=== PATIENT | male | born 1980 | race Caucasian/White ===

== ENCOUNTER 2019-07-01 16:24 | Emergency (ER) | payer OTHER ==
[~2019-07-01] VITALS: Ht 172.7 cm; Wt 83.9 kg
[2019-07-01 17:21] LABS: INFLUENZA A ANTIGEN Negative (Negative); INFLUENZA B ANTIGEN Negative (Negative)
[2019-07-01 17:47] VITALS: BP 138/90
== END 2019-07-01 17:48 | disposition home or self-care (01) ==
LOC: M.ERS 16:24
PROVIDERS: Physician Assistant
DX: R51 Headache (principal); Z88.0 Allergy status to penicillin

== ENCOUNTER 2021-05-15 08:17 | Emergency (ER) | payer OTHER ==
[~2021-05-15] VITALS: Ht 172.7 cm; Wt 83.9 kg
[2021-05-15] MEDS ORDERED: BACLOFEN 10MG T10 MG PO (08:35)
[2021-05-15] MEDS ORDERED: CLEOCIN HCL150 M1 PO (08:36)
[2021-05-15 09:11] LABS: ABSOLUTE BASOPHILS 0.1 thou/uL (0.0-0.2); ABSOLUTE EOSINOPHILS 0.1 thou/uL (0.0-0.7); ABSOLUTE LYMPHOCYTES 1.9 thou/uL (0.8-5.3); ABSOLUTE MONOCYTES 0.7 thou/uL (0.0-1.2); ABSOLUTE NEUTROPHILS 7.5 thou/uL (1.6-8.1); BASOPHILS 0.6 %; EOSINOPHILS 0.9 %; HEMATOCRIT 46.2 % (42.0-52.0); HEMOGLOBIN 16.3 gm/dL (14.0-18.0); LYMPHOCYTES 18.6 %; MCH 32.1 pg (26.0-34.0); MCHC 35.2 g/dL (28.0-37.0); MCV 91.2 fL (80.0-100.0); MONOCYTES 6.4 %; MPV 7.3 fl. (7.2-11.1); NUCLEATED RBCS 0 /100WBC; PLATELET COUNT* 245 thou/uL (150-400); POLYS 73.5 %; RBC 5.07 mil/uL (4.50-6.00); RDW-CV 12.7 % (10.5-14.5); WBC 10.2 thou/uL (4.0-11.0)
[2021-05-15 09:53] LABS: CALCIUM 9.3 mg/dL (8.5-10.1); CREATININE 0.9 mg/dL (0.6-1.3); POTASSIUM 3.6 mmol/L (3.5-5.1)
[2021-05-15 09:58] LABS: ALBUMIN 4.7 g/dL (3.4-5.0); MAGNESIUM 1.8 mg/dL (1.8-2.4); TOTAL BILIRUBIN 1.7 mg/dL (<0.1-1.0); TOTAL PROTEIN 8.1 g/dL (6.4-8.2)
[2021-05-15 10:10] VITALS: BP 126/87
--- NOTE | 2021-05-15 11:37 | EKG ---
[place] [address] ELECTROCARDIOGRAM REPORT Name: TOBY CATRAGENA JR Room: [facility]#: [id number] Admission: 05/15/21 Attend Phys: Discharge: 05/15/21 Date of : 78 Date of Service: 05/15/21 0844 Report #: [id number] THIS REPORT FOR: //name// [facility] ED Test Date: 2021-05-15 Test Time: 08:44:38 Pat Name: TOBY CARTAGENA Department: Room: Gender: Application Administrator: LILIA : 1980 Requested By: Brandon Peña Order Number: [id number] MD: Juan Jose Roque Measurements Intervals [place] Rate: 98 P: 55 WI: 150 QRS: 57 QRSD: 94 T: 12 QT: 350 QTc: 447 Interpretive Statements Sinus rhythm Minimal ST elevation, lateral leads No previous ECG available for comparison Electronically Signed On 05-15-2021 11:37:06 [employer] by Juan Jose Roque [email or web address] <ELECTRONICALLY SIGNED> By: Juan Jose Roque MD, [facility] 05/15/21 1137 Juan Jose Roque MD, [facility] /EPI
== END 2021-05-15 10:11 | disposition home or self-care (01) ==
LOC: M.ERS 08:17
PROVIDERS: Family Medicine
DX: R00.2 Palpitations (principal); R11.10 Vomiting, unspecified; F17.210 Nicotine dependence, cigarettes, uncomplicated; Z79.899 Other long term (current) drug therapy; Z79.2 Long term (current) use of antibiotics; Z88.8 Allergy status to other drugs, medicaments and biological substances; Z88.0 Allergy status to penicillin